=== PATIENT | female | born 1985 | race Caucasian/White ===

== ENCOUNTER 2016-07-20 20:38 | Outpatient (CLI) | payer OTHER ==
[~2016-07-20] VITALS: Ht 167.6 cm; Wt 69.1 kg
[2016-07-20 20:46] VITALS: Ht 167.6 cm; Wt 69.1 kg
[2016-07-20 20:47] VITALS: BP 126/72; PULSE 92; RESP 19
[2016-07-20] MEDS ORDERED: PRENAT PO (20:52)
[2016-07-20] MEDS ORDERED: LACTATED RINGER'S 1,000 ML IV ONE (22:30)
[2016-07-20] MEDS ORDERED: LACTATED RINGER'S 1,000 ML IV SCH (22:30)
[2016-07-20] MEDS ORDERED: ONDANSETRON 4 MG INJ IV ONE (22:34)
[2016-07-20 22:55] LABS: ADD SCAN DIFF NO
[2016-07-20 22:56] LABS: BASOPHILS % 0.1 % (0.0-2.0); EOSINOPHILS # 0.1 10^3/ul (0.0-0.5); EOSINOPHILS % 0.6 % (0.0-7.0); HEMATOCRIT 38.2 % (37.0-47.0); HEMOGLOBIN 12.5 g/dl (12.0-16.0); LYMPHOCYTES # 0.9 10^3/ul (0.8-2.9); LYMPHOCYTES % 6.5 % (15.0-51.0); MEAN CORPUSCULAR HGB CONC 32.7 g/dl (32.0-37.0); MEAN CORPUSCULAR VOLUME 91.6 fl (82.0-101.0); MEAN PLATELET VOLUME 9.3 fl (7.4-10.4); MONOCYTE # 0.8 10^3/ul (0.3-0.9); MONOCYTES % 5.6 % (0.0-11.0); NEUTROPHIL # 12.6 10^3/ul (1.6-7.5); NEUTROPHILS % 86.4 % (39.0-77.0); PLATELET COUNT 311 10^3/UL (140-415); RED BLOOD COUNT 4.17 10^6/ul (4.20-5.40); RED CELL DISTRIBUTION WIDTH 13.1 % (11.5-14.5); WHITE BLOOD COUNT 14.5 10^3/ul (4.8-10.8)
[2016-07-20 23:14] LABS: ALBUMIN 4.4 g/dl (3.3-4.9); ALBUMIN/GLOBULIN RATIO 1.57; BILIRUBIN,INDIRECT 0.2 mg/dl (0-1.1); BILIRUBIN,TOTAL 0.2 mg/dl (0.2-1.3); CALCIUM 8.8 mg/dl (8.4-10.2); CREATININE 0.53 mg/dl (0.44-1.00); POTASSIUM 3.7 mmol/L (3.5-5.1); TOTAL PROTEIN 7.2 g/dl (6.1-8.1)
[2016-07-21 00:14] LABS: ADD UMIC NO; URINE BILIRUBIN (Dip) NEGATIVE (NEGATIVE); URINE BLOOD (Dip) NEGATIVE (NEGATIVE); URINE COLOR LT. YELLOW (YELLOW); URINE GLUCOSE (Dip) NEGATIVE (NEGATIVE); URINE KETONES (Dip) 40 (NEGATIVE); URINE LEUKOCYTE ESTERASE (Dip) NEGATIVE (NEGATIVE); URINE NITRITE (Dip) NEGATIVE (NEGATIVE); URINE TOTAL PROTEIN (Dip) NEGATIVE (NEGATIVE); URINE UROBILINOGEN (Dip) 0.2 E.U./dL (0.1-1.0)
[2016-07-21] MEDS ORDERED: ACETAMINOPHEN 500 MG TAB PO ONE (01:15)
--- NOTE | 2016-07-21 02:36 | QN ---
Documentation Comment 30 years old with IUP at 38 weeks currently scheduled for Elective C/S and BTL by Dr. Castro, presented to the triage with complaint of cramps and nausea after she and family ate out side food. She reports similar symptoms in other family members that ate the same food. Denies any LOf, VB or decreased movement. Denies any fever , chills, diarrhea or any other complaint. GA: A&O, in moderate distress due to nausea Abdomen: Soft, non tender, no rebound tenderness, no rigidity, Extremities: no calf tenderness, no click, no edema Hematology - 72 Hrs Test 07/20/16 22:20 White Blood Count 14.510^3/ul (4.8-10.8) H Red Blood Count 4.1710^6/ul (4.20-5.40) L Hemoglobin 12.5g/dl (12.0-16.0) Hematocrit 38.2% (37.0-47.0) Mean Corpuscular Volume 91.6fl (82.0-101.0) Mean Corpuscular Hemoglobin 30.0pg (29.0-33.0) Mean Corpuscular Hemoglobin Concent 32.7g/dl (32.0-37.0) Red Cell Distribution Width 13.1% (11.5-14.5) Platelet Count 04877^3/UL (140-415) Mean Platelet Volume 9.3fl (7.4-10.4) Neutrophils % 86.4% (39.0-77.0) H Lymphocytes % 6.5% (15.0-51.0) L Monocytes % 5.6% (0.0-11.0) Eosinophils % 0.6% (0.0-7.0) Basophils % 0.1% (0.0-2.0) Nucleated Red Blood Cells % 0.0/100WBC (0.0-0.0) Neutrophils # 12.610^3/ul (1.6-7.5) H Lymphocytes # 0.910^3/ul (0.8-2.9) Monocytes # 0.810^3/ul (0.3-0.9) Eosinophils # 0.110^3/ul (0.0-0.5) Basophils # 0.010^3/ul (0.0-0.1) Nucleated Red Blood Cells # 0.010^3/ul (0.0-0.0) Chemistry Test 07/20/16 22:20 Sodium Level 134mmol/L (135-144) L Potassium Level 3.7mmol/L (3.5-5.1) Chloride Level 106mmol/L (97-110) Carbon Dioxide Level 21mmol/L (21-31) Anion Gap 11 (8-16) Blood Urea Nitrogen 14mg/dl (7-20) Creatinine 0.53mg/dl (0.44-1.00) Glucose Level 79mg/dl (70-220) Calcium Level 8.8mg/dl (8.4-10.2) Total Bilirubin 0.2mg/dl (0.2-1.3) Direct Bilirubin 0.00mg/dl (0.00-0.20) Indirect Bilirubin 0.2mg/dl (0-1.1) Aspartate Amino Transf (AST/SGOT) 22IU/L (15-46) Alanine Aminotransferase (ALT/SGPT) 21IU/L (13-69) Alkaline Phosphatase 118IU/L (42-121) Total Protein 7.2g/dl (6.1-8.1) Albumin 4.4g/dl (3.3-4.9) Globulin 2.80g/dl (1.3-3.2) Albumin/Globulin Ratio 1.57 Amylase Level 95U/L (11-123) Lipase 59U/L (23-300) NST: Cat 1 Assessement IUP at 38 weeks Nausea and abdominal cramps., no evidence of labor Cramps and nausea likely due to Gastroenteririts. Nausea resolved with IV antiemetic Diatery instructions provided repeat exam did not show any evidence of labor or cervical change, DC home Tylenol PRN for cramps Labor precaution and [facility] Reglan PRN nausea Carbontaed non caffeinated drinks Follow up with OB clinic in 1-2 days after DC Patient verbalized understanding plan of care and agreed to comply with the instructions CHELSI HUGHES MD Jul 21, 2016 02:36
== END 2016-07-21 02:10 | disposition home or self-care (01) ==
LOC: L-D 20:38 → OBT 20:38
PROVIDERS: ATTEND Obstetrics & Gynecology
DX: O21.0 Mild hyperemesis gravidarum (principal); O26.893 Other specified pregnancy related conditions, third trimester; R25.2 Cramp and spasm; Z3A.38 38 weeks gestation of pregnancy
CPT/HCPCS: 36415; 80053; 81003; 82150; 83690; 85025; 96360; 96361; J2405; J7120; Z7500; Z7610; G0463

== ENCOUNTER 2016-07-28 14:08 | Inpatient (IN) | payer OTHER ==
[~2016-07-28] VITALS: Ht 167.6 cm; Wt 70.5 kg
[~2016-07-28 14:08] MED LIST: PRENAT PO
[2016-07-28 14:40] VITALS: BP 123/70; PULSE 80; RESP 20
[2016-07-28] MEDS ORDERED: OXYCODONE/ASPIRIN (4.88/325) TAB PO PRN (15:00)
[2016-07-28] MEDS ORDERED: IBUPROFEN 600 MG TAB PO PRN (15:00)
[2016-07-28] MEDS ORDERED: CEFAZOLIN 2 GM/50 ML (PMX) 50 ML IV SCH (15:00)
[2016-07-28] MEDS ORDERED: ACETAMINOPHEN/CODEINE #3 TAB PO PRN (15:00)
[2016-07-28] MEDS ORDERED: CARBOPROST 250 MCG INJ IM PRN (15:00)
[2016-07-28] MEDS ORDERED: OXYCODONE/ACETAMINOPHEN (5/325) TAB PO PRN (15:00)
[2016-07-28] MEDS ORDERED: OXYTOCIN 30 UNITS/LR 500 ML IV PRN (15:00)
[2016-07-28] MEDS ORDERED: OXYTOCIN 30 UNITS/LR 500 ML IV SCH ×2 (15:00)
[2016-07-28] MEDS ORDERED: MISOPROSTOL 200 MCG TAB PR PRN (15:00)
[2016-07-28] MEDS ORDERED: METHYLERGONOVINE 0.2 MG INJ IM PRN (15:00)
[2016-07-28 15:10] LABS: ADD SCAN DIFF NO
[2016-07-28 15:13] LABS: BASOPHILS % 0.3 % (0.0-2.0); EOSINOPHILS # 0.1 10^3/ul (0.0-0.5); EOSINOPHILS % 1.3 % (0.0-7.0); HEMATOCRIT 35.6 % (37.0-47.0); HEMOGLOBIN 11.8 g/dl (12.0-16.0); LYMPHOCYTES % 19.9 % (15.0-51.0); MEAN CORPUSCULAR HEMOGLOBIN 29.9 pg (29.0-33.0); MEAN CORPUSCULAR HGB CONC 33.1 g/dl (32.0-37.0); MEAN CORPUSCULAR VOLUME 90.1 fl (82.0-101.0); MEAN PLATELET VOLUME 9.3 fl (7.4-10.4); MONOCYTE # 0.8 10^3/ul (0.3-0.9); MONOCYTES % 7.3 % (0.0-11.0); NEUTROPHIL # 7.2 10^3/ul (1.6-7.5); NEUTROPHILS % 69.8 % (39.0-77.0); PLATELET COUNT 339 10^3/UL (140-415); RED BLOOD COUNT 3.95 10^6/ul (4.20-5.40); RED CELL DISTRIBUTION WIDTH 12.7 % (11.5-14.5); WHITE BLOOD COUNT 10.3 10^3/ul (4.8-10.8)
[2016-07-28 15:28] LABS: INR 0.86; PROTIME 11.7 Sec (12.2-14.2); PT RATIO 0.9
[2016-07-28 15:29] LABS: PARTIAL THROMBOPLASTIN TIME 30.3 Sec (25.0-35.0)
[2016-07-28] MEDS: LACTATED RINGER'S 1,000 ML IV SCH ×2 (16:28→16:55)
[2016-07-28 16:31] VITALS: Ht 167.6 cm; Wt 70.5 kg
[2016-07-28 18:03] LABS: BARBITURATES Negative (NEGATIVE); BENZODIAZEPINES Negative (NEGATIVE); CANNABINOIDS Negative (NEGATIVE); COCAINE Negative (NEGATIVE); OPIATES Negative (NEGATIVE)
[2016-07-28] MEDS ORDERED: morphine SULFATE/PF (10 MG/10 ML) INJ ONE (18:08)
[2016-07-28] MEDS ORDERED: PHENYLephrine (100 MCG/ML) 5ML SYG ONE (18:20)
[2016-07-28] MEDS ORDERED: MEPERIDINE 25 MG INJ IV PRN (18:30)
[2016-07-28] MEDS ORDERED: HYDROmorphONE 1 MG/ML SYG IV PRN (18:30)
[2016-07-28] MEDS ORDERED: HYDROmorphONE (0.2 MG/ML) 10ML SYG IV PRN ×2 (18:30)
[2016-07-28] MEDS ORDERED: METOCLOPRAMIDE 10 MG INJ IV PRN (18:30)
[2016-07-28] MEDS ORDERED: NALOXONE (0.4 MG/ML) INJ IV PRN (18:30)
[2016-07-28] MEDS ORDERED: KETOROLAC 30 MG INJ IV ONE (18:30)
[2016-07-28] MEDS ORDERED: DIPHENHYDRAMINE 50 MG INJ IV PRN ×2 (18:30)
[2016-07-28] MEDS ORDERED: FENTAnyl 50 MCG/ML VIAL IV PRN (18:30)
[2016-07-28] MEDS ORDERED: ONDANSETRON 4 MG INJ IV PRN ×2 (18:30)
--- NOTE | 2016-07-28 18:33 | PREOPHP ---
DATE OF ADMISSION: 07/28/2016 HISTORY OF PRESENT ILLNESS: A 30-year-old female, 5, para 2-0-2-2, estimated delivery 08/04 at 39 weeks' gestation, admitted for elective primary section. The patient does not desire trial of labor. During the course, the patient had signed a consent for sterilizat ion. However, at time of admission, the patient said that she had changed her mind and she would li ke to use another method that is reversible. The patient no longer desires surgical sterilization. PAST MEDICAL HISTORY: Kidney stones. PAST SURGICAL HISTORY: Breast implants. ALLERGIES: NO KNOWN ALLERGIES. FAMILY HISTORY: Noncontributory. PHYSICAL EXAMINATION: VITAL SIGNS: The patient is afebrile. Vital signs stable. HEAD, NECK AND CHEST: Within normal limits. ABDOMEN: Soft, nontender and gravid. EXTREMITIES: Within normal limits. NEUROLOGIC: Within normal limits. IMPRESSION: at 39 weeks. Patient declines to have a trial of labor. The patient request s delivery by elective primary section. PLAN: Primary section. Risks, benefits and alternatives of the procedure were explained t o the patient. The patient said she understood and gave informed consent for the procedure. Dictated By: ROBBI NIÑO/DAVID Conf#: [id number] DID#: [id number]
[2016-07-28] MEDS ORDERED: MIDAZOLAM 1 MG/ML 2 ML INJ ONE (18:46)
--- NOTE | 2016-07-28 20:42 | OPR ---
DATE OF OPERATION: 07/28/2016 PREOPERATIVE DIAGNOSES: at 39 weeks for elective primary section. POSTOPERATIVE DIAGNOSES: at 39 weeks for elective primary section. OPERATION PERFORMED: Primary low transverse section. SURGEON: Robbi Castro MD BAND BIAS MACHINE OPERATOR: Kiara Payan MD ANESTHESIA: Spinal. ANESTHESIOLOGIST: Rio Aguirre MD PROCEDURE: The patient was taken to operating room and placed on the operating table. After succes sful spinal anesthesia was given, the patient was placed in supine position. The area was prepared and draped in usual sterile fashion. Spinal anesthesia was tested and was satisfactory. Using scal pel, Pfannenstiel incision was made about 2 fingerbreadths above symphysis pubis. The incision was carried to fascia. The fascia was incised and extended bilaterally with Ybarra scissors. Two Kochers were used to separate the fascia from the muscle. The muscle was dissected down to peritoneum. Th e peritoneum was bluntly entered. Using a scalpel, a small transverse incision was made in the lowe r segment of the uterus. Upon entering uterine cavity, bandage scissors were inserted to extend the incision bilaterally, curved up. Baby was delivered from cephalic presentation. After suctioning clear of amniotic fluid, the baby was handed off to the team in attendance. Apgars were 8 and 9. The placenta was delivered without difficulty. The uterus was closed with #1 Monocryl jhon nuous locked. After assuring hemostasis, both ovaries and tubes were inspected, all looked normal. The peritoneal cavity was irrigated with warm saline. The peritoneum was closed with 2-0 Vicryl co ntinuous. The fascia was closed with #1 Vicryl continuous in 2 segments. The subcutaneous tissue w as reapproximated with 2-0 plain. The skin was closed with quyen. ESTIMATED BLOOD LOSS: 400 mL COMPLICATIONS: None. COUNTS: All counts were correct. Dictated By: ROBBI CASTRO MD GD/NTS Conf#: [id number] DID#: [id number]
[2016-07-28] MEDS: HYDROmorphONE (0.2 MG/ML) 10ML SYG IV PRN ×2 (20:51→21:30)
[2016-07-28] MEDS ORDERED: OXYTOCIN 30 UNITS/LR 500 ML IV ONE (22:00)
[2016-07-28] MEDS ORDERED: LACTATED RINGER'S 1,000 ML IV ONE (22:00)
[2016-07-28] MEDS: HYDROmorphONE 1 MG/ML SYG IV PRN (22:30)
[2016-07-29] VITALS (7 sets, daily range): BP systolic 104–137; BP diastolic 51–80; PULSE 67–85; RESP 19–20
[2016-07-29] MEDS ORDERED: NALOXONE (0.4 MG/ML) INJ IV PRN
[2016-07-29] MEDS ORDERED: ONDANSETRON 4 MG INJ IV PRN
[2016-07-29] MEDS ORDERED: HYDROmorphONE 1 MG/ML SYG IV PRN ×4
[2016-07-29] MEDS ORDERED: DIPHENHYDRAMINE 50 MG INJ IV PRN
[2016-07-29] MEDS ORDERED: ZOLPIDEM 5 MG TAB PO PRN
[2016-07-29] MEDS ORDERED: HYDROmorphONE 1 MG/ML SYG IV ONE (00:14)
[2016-07-29] MEDS: OXYTOCIN 30 UNITS/LR 500 ML IV SCH (01:13)
[2016-07-29] MEDS ORDERED: MISOPROSTOL 200 MCG TAB PR PRN (01:30)
[2016-07-29] MEDS ORDERED: LANOLIN 7 GM TUBE TOP PRN (01:30)
[2016-07-29] MEDS ORDERED: CARBOPROST 250 MCG INJ IM PRN (01:30)
[2016-07-29] MEDS ORDERED: OXYTOCIN 30 UNITS/LR 500 ML IV PRN (01:30)
[2016-07-29] MEDS ORDERED: METHYLERGONOVINE 0.2 MG INJ IM PRN (01:30)
[2016-07-29] MEDS: KETOROLAC 30 MG INJ IV PRN ×2 (01:31→18:55)
[2016-07-29] MEDS: LACTATED RINGER'S 1,000 ML IV SCH ×2 (02:17→05:53)
[2016-07-29] MEDS: HYDROmorphONE 1 MG/ML SYG IV PRN ×5 (04:12→15:00)
[2016-07-29 07:23] LABS: ADD SCAN DIFF NO
[2016-07-29 07:26] LABS: BASOPHILS % 0.1 % (0.0-2.0); EOSINOPHILS # 0.1 10^3/ul (0.0-0.5); EOSINOPHILS % 1.5 % (0.0-7.0); HEMATOCRIT 31.5 % (37.0-47.0); LYMPHOCYTES # 1.5 10^3/ul (0.8-2.9); LYMPHOCYTES % 16.9 % (15.0-51.0); MEAN CORPUSCULAR HEMOGLOBIN 29.4 pg (29.0-33.0); MEAN CORPUSCULAR HGB CONC 31.7 g/dl (32.0-37.0); MEAN CORPUSCULAR VOLUME 92.6 fl (82.0-101.0); MEAN PLATELET VOLUME 9.2 fl (7.4-10.4); MONOCYTE # 0.7 10^3/ul (0.3-0.9); MONOCYTES % 7.9 % (0.0-11.0); NEUTROPHIL # 6.2 10^3/ul (1.6-7.5); NEUTROPHILS % 72.4 % (39.0-77.0); PLATELET COUNT 239 10^3/UL (140-415); RED CELL DISTRIBUTION WIDTH 12.8 % (11.5-14.5); WHITE BLOOD COUNT 8.6 10^3/ul (4.8-10.8)
--- NOTE | 2016-07-29 07:39 | CONS ---
Date/Time of Note Date/Time of Note DATE: 07/29/16 TIME: 07:36 Consultation Date/Type/Reason Admit Date/Time Jul 28, 2016 at 14:08 Initial Consult Date 07/29/16 Type of Consultation: Anesthesiology Reason for Consultation Follow up 24 HR Interval Summary Free Text/Dictation Pt seen and examined at bedside is POD#1 for elective primary c/s. Pt received spinal with duramorph for post op pain control. She was having a lot of crampy pain after the c/s and believed it was due to the oxytocin gtt. She states she felt a lot better when the oxytocin was stopped and her pain is currently controlled adequately. She denies any N/V/D/CORRAL/Numbness. Will follow up. Constitutional: improved, no complaints Exam/Review of Systems Vital Signs Vitals Vital Signs Date Time Temp Pulse Resp B/P Pulse Ox O2 Delivery O2 Flow Rate FiO2 07/29/16 04:30 98 21 07/29/16 04:15 99.1 70 19 104/51 Room Air Intake and Output 07/28/16 07/28/16 07/29/16 15:00 23:00 07:00 Intake Total 1400 ml 750 ml Output Total 600 ml 200 ml Balance 800 ml 550 ml Results Result Diagram: 07/29/16 0701 Results 24 hrs Laboratory Tests Test 07/28/16 14:40 07/28/16 16:30 07/29/16 07:01 White Blood Count 10.3 # 8.6 Red Blood Count 3.95 L 3.40 L Hemoglobin 11.8 L 10.0 L Hematocrit 35.6 L 31.5 L Mean Corpuscular Volume 90.1 92.6 Mean Corpuscular Hemoglobin 29.9 29.4 Mean Corpuscular Hemoglobin Concent 33.1 31.7 L Red Cell Distribution Width 12.7 12.8 Platelet Count 339 239 # Mean Platelet Volume 9.3 9.2 Neutrophils % 69.8 72.4 Lymphocytes % 19.9 16.9 Monocytes % 7.3 7.9 Eosinophils % 1.3 1.5 Basophils % 0.3 0.1 Nucleated Red Blood Cells % 0.0 0.0 Neutrophils # 7.2 6.2 Lymphocytes # 2.0 1.5 Monocytes # 0.8 0.7 Eosinophils # 0.1 0.1 Basophils # 0.0 0.0 Nucleated Red Blood Cells # 0.0 0.0 Prothrombin Time 11.7 L Prothrombin Time Ratio 0.9 INR International Normalized Ratio 0.86 Activated Partial Thromboplast Time 30.3 Hepatitis B Surface Antigen NEGATIVE Urine Opiates Screen Negative Urine Barbiturates Negative Urine Amphetamines Screen Negative Urine Benzodiazepines Screen Negative Urine Cocaine Screen Negative Urine Cannabinoids Negative Medications Medications Current Medications Ketorolac Tromethamine (Toradol) 30 mg Q6H PRN IV PAIN Last administered on 07/29 01:31; Admin Dose 30 MG; Start 07/28/16 at 18:30; Stop 07/29/16 at 18:29 Hydromorphone HCl (Dilaudid) 0.2 mg Q3H PRN IV PAIN LEVEL 1-5; Start 07/28/16 at 18:30; Stop 07/29/16 at 18:29 Hydromorphone HCl (Dilaudid) 0.4 mg Q3H PRN IV PAIN LEVEL 6-10 Last administered on 07/29/16 06:53; Admin Dose 0.4 MG; Start 07/28/16 at 18:30; Stop 07/29/16 at 18:29 Diphenhydramine HCl (Benadryl) 25 mg Q6H PRN IV ITCHING; Start 07/28/16 at 18:30 ; Stop 07/29/16 at 18:29 Ondansetron HCl (Zofran Inj) 4 mg Q6H PRN IV NAUSEA AND/OR VOMITING; Start 07/28 at 18:30; Stop 07/29/16 at 18:29 Hydromorphone HCl (Dilaudid) 0.6 mg Q3H PRN IV BREAKTHROUGH PAIN; Start at 00:00; Stop 07/29/16 at 23:59 Hydromorphone HCl (Dilaudid) 0.2 mg Q3H PRN IV PAIN LEVEL 1-5; Start 07/29/16 at 00:00; Stop 07/29/16 at 23:59 Hydromorphone HCl (Dilaudid) 0.4 mg Q3H PRN IV PAIN LEVEL 6-10; Start 07/29/16 at 00:00; Stop 07/29/16 at 23:59 Diphenhydramine HCl (Benadryl) 25 mg Q6H PRN IV ITCHING; Start 07/29/16 at 00:00 ; Stop 07/29/16 at 23:59 Ondansetron HCl 4 mg 4 mg Q6H PRN IV NAUSEA AND/OR VOMITING; Start 07/29/16 at 00:00; Stop 07/29/16 at 23:59 Lactated Ringer's 1,000 ml @ 125 mls/hr Q8H IV Last administered on 07/29/16t 05:53; Admin Dose 125 MLS/HR; Start 07/29/16 at 01:13 Oxytocin/Lactated Ringer's 500 ml @ 125 mls/hr Q4H IV ; Start 07/29/16 at 01:13 ; Stop 07/29/16 at 09:12 Oxycodone/ Acetaminophen (Percocet (5/ 325)) 1 tab Q4H PRN PO PAIN LEVEL 4-6; Start 07/29/16 at 18:30 Oxycodone/ Acetaminophen (Percocet (5/ 325)) 2 tab Q4H PRN PO PAIN LEVEL 7-10; Start 07/29/16 at 18:30 Ibuprofen (Motrin) 800 mg Q8 PO ; Start 07/29/16 at 22:00 Simethicone (Mylicon) 160 mg Q8H PRN PO DISTENSION/GAS/BLOATING; Start 07/29/16 at 01:30 Senna/Docusate Sodium (Senokot-S) 1 tab BID PO ; Start 07/29/16 at 09:00 Diphtheria/ Tetanus/Acell Pertussis 0.5 ml 0.5 ml ONCE ONCE IM* ; Start at 09:00; Stop 07/31/16 at 09:01 Oxytocin/Lactated Ringer's 500 ml @ 0 mls/hr ONCE PRN IV For Hemorrhage Management; Start 07/29/16 at 01:30 Methylergonovine Maleate (Methergine) 0.2 mg ONCE PRN IM VAGINAL BLEEDING; Start 07/29/16 at 01:30 Carboprost Tromethamine (Hemabate) 250 mcg ONCE PRN IM VAGINAL BLEEDING; Start 07/29/16 at 01:30 Misoprostol (Cytotec) 1,000 mcg ONCE PRN IL VAGINAL BLEEDING; Start 07/29/16 at 01:30 JASON GARCIA Jul 29, 2016 07:39
[2016-07-29] MEDS: SENNA/DOCUSATE NA (8.6MG/50MG) TAB PO SCH ×2 (09:44→21:44)
[2016-07-29] MEDS ORDERED: morphine 2 MG INJ IV PRN (18:00)
[2016-07-29] MEDS ORDERED: LORAZEPAM 2 MG INJ IV PRN (18:00)
[2016-07-29] MEDS ORDERED: OXYCODONE/ACETAMINOPHEN (5/325) TAB PO PRN ×2 (18:00→18:30)
[2016-07-29] MEDS: OXYCODONE/ACETAMINOPHEN (5/325) TAB PO PRN ×2 (19:26→23:02)
--- NOTE | 2016-07-29 19:56 | QN ---
Documentation Comment c/o incisional pain Afebrile VSS Abdomen soft ND POD# 1 Stable Start Percocet and Motrin for pain control. ROBBI PRESTON MD Jul 29, 2016 19:56
[2016-07-29] MEDS ORDERED: IBUPROFEN 800 MG TAB PO SCH (21:00)
[2016-07-29] MEDS: IBUPROFEN 800 MG TAB PO SCH (22:00)
[2016-07-30] MEDS: LACTATED RINGER'S 1,000 ML IV SCH ×4 (01:13→17:13)
[2016-07-30] MEDS: OXYTOCIN 30 UNITS/LR 500 ML IV SCH (02:07)
[2016-07-30 03:26] VITALS: BP 118/60; PULSE 70; RESP 19
[2016-07-30] MEDS: OXYCODONE/ACETAMINOPHEN (5/325) TAB PO PRN ×5 (03:26→21:17)
[2016-07-30] MEDS: IBUPROFEN 800 MG TAB PO SCH ×3 (05:37→22:43)
[2016-07-30] MEDS: SENNA/DOCUSATE NA (8.6MG/50MG) TAB PO SCH ×2 (08:36→21:06)
[2016-07-30 08:37] VITALS: BP 116/52; PULSE 74; RESP 18
[2016-07-30 16:57] VITALS: BP 139/54; PULSE 77; RESP 18
--- NOTE | 2016-07-30 18:04 | QN ---
Documentation Comment No complaint. Afebrile VSS Abdomen soft Incision intact POD #2 Stable Continue present care. ROBBI PRESTON MD Jul 30, 2016 18:04
[2016-07-30 19:35] VITALS: BP 130/69; PULSE 66; RESP 18
[2016-07-31] MEDS: LACTATED RINGER'S 1,000 ML IV SCH (01:13)
[2016-07-31] MEDS: OXYCODONE/ACETAMINOPHEN (5/325) TAB PO PRN ×2 (04:01→09:36)
[2016-07-31 04:15] VITALS: BP 119/58; PULSE 67; RESP 18
--- NOTE | 2016-07-31 04:17 | DS ---
DATE OF ADMISSION: 07/28/2016 DATE OF DISCHARGE: 07/31/2016 ADMITTING DIAGNOSES: at 39 weeks. HISTORY: A 30-year-old female, 5, para 2-0-2-2 at the time of admission, para 3-0-2-3 at ti me of discharge, at 39 weeks' gestation who was admitted for elective primary section. The patient declined trial of labor. During course, the patient had signed consent for steril ization; however, at the time of admission, the patient said she had changed her mind and she desire d to use a reversible method of contraception. On 07/28/2016, after obtaining informed consent, the patient underwent a primary low transverse section. The patient's operation was uncomplic ated. Postoperatively, the patient was given clear liquid diet, which was advanced to regular diet, which she tolerated well. The patient was discharged on postop day #3 after having had adequate bl adder and bowel function. CONDITION ON DISCHARGE: Stable. DISCHARGE INSTRUCTIONS: DIET: Regular. ACTIVITIES: Pelvic rest and no strenuous activities. MEDICATIONS: 1. Motrin as needed for pain. 2. Continue with vitamins and ferrous sulfate. FOLLOWUP: Follow up in clinic in 1 week. FINAL DIAGNOSES: 1. Term , delivered by section. 2. Elective primary section. 3. Mother with single liveborn. Dictated By: ROBBI NIÑO/DAVID Conf#: [id number] DID#: [id number]
[2016-07-31] MEDS: IBUPROFEN 800 MG TAB PO SCH (05:59)
[2016-07-31] MEDS ORDERED: DIPHTH/TET/ACEL PERTUSS (ADULT) 0.5 ML VIAL IM* ONE (09:00)
[2016-07-31 09:10] VITALS: BP 127/74; PULSE 70; RESP 19
[2016-07-31] MEDS: SENNA/DOCUSATE NA (8.6MG/50MG) TAB PO SCH (09:35)
== END 2016-07-31 14:05 | disposition home or self-care (01) | DRG 766 ==
LOC: L-D 14:08 → PP1 07-29 00:18
PROVIDERS: ADMIT Obstetrics & Gynecology; ATTEND Obstetrics & Gynecology
PROC: 10D00Z1 Extraction of Products of Conception, Low, Open Approach (ICD-10-PCS; principal; 2016-07-28 17:00)
PROC: 3E00X4Z Introduction of Serum, Toxoid and Vaccine into Skin and Mucous Membranes, External Approach (ICD-10-PCS; 2016-07-31)
DX: O75.82 Onset (spontaneous) of labor after 37 completed weeks of gestation but before 39 completed weeks gestation, with delivery by (planned) cesarean section (principal); Z23 Encounter for immunization; Z3A.39 39 weeks gestation of pregnancy; Z37.0 Single live birth
CPT/HCPCS: 80307; 85025; 85610; 85730; 86592; 86850; 86900; 86901; 87340; 90715; 94760; 99464; J0690; J1170; J1200; J1885; J2250; J2270; J2274; J2370; J2590; J3010; J7120